=== PATIENT | male | born 1955 | race Caucasian/White ===

== ENCOUNTER 2018-07-24 12:08 | Emergency (ER) | payer MEDICAID ==
[~2018-07-24] VITALS: Ht 165.1 cm; Wt 113.4 kg
[2018-07-24 12:16] VITALS: BP 191/87; Ht 165.1 cm; Wt 113.4 kg
== END 2018-07-24 14:12 | disposition home or self-care (01) ==
LOC: ED 12:08
DX: L02.414 Cutaneous abscess of left upper limb (principal); E11.9 Type 2 diabetes mellitus without complications; I10 Essential (primary) hypertension; E78.00 Pure hypercholesterolemia, unspecified; Z98.890 Other specified postprocedural states
CPT/HCPCS: 82962